=== PATIENT | male | born 1980 | race Caucasian/White ===

== ENCOUNTER 2021-08-05 09:50 | Outpatient (CLI) | payer BC, SELFPAY ==
[2021-08-05 10:27] LABS: Basophils Percent Auto 0.7 % (0.2-1.2); Eosinophils Absolute Auto 0.3 K/mm3 (0-0.3); Eosinophils Percent Auto 5.7 % (0-4.4); Hematocrit 44.7 % (42.0-52.0); Hemoglobin 14.9 g/dL (14.0-18.0); Immature Granulocyte Absolute 0.01 K/mm3 (0.00-0.031); Immature Granulocyte Percent A 0.2 % (0-0.5); Lymphocytes Percent Auto 30.4 % (18.3-44.2); Mean Corpuscular HGB Conc 33.3 g/dl (32-36); Mean Corpuscular Hemoglobin 30.6 pg (26-34); Mean Corpuscular Volume 91.8 fl (80-100); Mean Platelet Volume 9.9 fl (7.4-10.4); Monocytes Absolute Auto 0.3 K/mm3 (0.1-0.6); Monocytes Percent Auto 5.9 % (2.6-8.5); Neutrophils Absolute Auto 3.2 K/mm3 (1.3-6.7); Neutrophils Percent Auto 57.1 % (45.5-73.1); Platelet Count Result 238 k/mm3 (150-375); Red Blood Count 4.87 M/mm3 (4.6-6.20); Red Cell Distribution Width 12.4 % (11.5-14.5); White Blood Count 5.6 K/mm3 (4.5-10.0)
[2021-08-05 12:39] LABS: Anion Gap 10 mmol/L (8-16); Blood Urea Nitrogen 12 mg/dL (9-20); Calcium 9.4 mg/dL (8.4-10.2); Carbon Dioxide 27 mmol/L (22-30); Chloride 103 mmol/L (98-107); Estimated Glomerular Filt Rate > 60; Glucose 100 mg/dL (65-110); Sodium 140 mmol/L (137-145)
== END 2021-08-05 09:51 | disposition home or self-care (01) ==
PROVIDERS: PCP Family Medicine; Visit Provider Physician Assistant Medical
DX: G44.82 Headache associated with sexual activity (principal); R03.0 Elevated blood-pressure reading, without diagnosis of hypertension
CPT/HCPCS: 36415; 80048; 84443; 85025

== ENCOUNTER → 2021-08-21 08:53 | Outpatient (CLI) | payer BC, SELFPAY ==
--- NOTE | ~2021-08-21 | MR_ITS ---
EXAMINATION: MR brain/brain stem wo con DATE: 08/21/2021 09:53 INDICATION: Headache associated with sexual activity. TECHNIQUE: Magnetic resonance imaging (MRI) of the brain and brainstem was performed without intraven ous contrast. Sequences included sagittal and axial T1-weighted FSE, axial diffusion-weighted FS EPI, axial T2*-weighted GRE, axial T2-weighted FLAIR Propeller, and axial T2-weighted Propeller. Apparent diffusion coefficient (ADC) maps were created. COMPARISON: None. FINDINGS: There is no intracranial hemorrhage, acute infarction, or abnormal intracranial mass lesion . The ventricles are normal in size. There is mild mucosal thickening in the paranasal sinuses. The o rbits are normal. The mastoid air cells are normal. IMPRESSION: 1. Normal brain. Reviewed, dictated and finalized at location A. IMPRESSION: 1. Normal brain.
== END ==
PROVIDERS: PCP Family Medicine; Visit Provider Physician Assistant Medical
DX: G44.82 Headache associated with sexual activity (principal)
CPT/HCPCS: 70551

== ENCOUNTER 2022-01-01 09:54 | Outpatient (CLI) | payer BC, SELFPAY ==
--- NOTE | 2022-01-01 10:14 | EST_ITS ---
Patient Info Name: Terrence Hicks Age: 41 years : 1980 Gender: Male Ht: 74 in Wt: 240 lbs BSA: 2.41 m2 HR: 65 bpm BP: 128 / 63 mmHg Heart Rhythm: Sinus Rhythm Exam Date: 01/01/2022 10:28 AM Exam Location: [facility] Stress Patient Status: Outpatient Admit Date: 01/01/2022 Staff Ordering Physician: [place] Clements Attending Provider: [place] Clements Exercise Technologist: Latanya Goss, MILENA Exercise Physician: Harsha Calhoun DO Exam Type: CA stress test treadmill Study Info Indications R07.89 - Other chest pain A treadmill exercise stress test was performed. Summary 1. 1. Negative [place] exercise stress test for ischemic ST changes by ECG criteria. 2. 2. Good functional capacity, achieving 12 METs of workload. 3. 3. Appropriate HR response to exercise. 4. 4. Appropriate HR recovery at 1 minute post exercise. 5. 5. Hypertensive response to exercise. 6. 6. No imaging with stress testing. 7. 7. Patient informed of the above results. Protocol: [place] Stress ECG Details Stage: REST Duration (min): 1 min : 6 sec Speed (mph): 0.0 Grade (%): 0 HR (bpm): 66 SBP (mmHg): 128 DBP (mmHg): 63 METS: --- Stage: REST Duration (min): 7 min : 32 sec Speed (mph): 0.0 Grade (%): 0 HR (bpm): 70 SBP (mmHg): 128 DBP (mmHg): 63 METS: --- Stage: STAGE 1 Duration (min): 1 min : 0 sec Speed (mph): 1.7 Grade (%): 10 HR (bpm): 93 SBP (mmHg): 128 DBP (mmHg): 63 METS: --- Stage: STAGE 1 Duration (min): 2 min : 0 sec Speed (mph): 1.7 Grade (%): 10 HR (bpm): 101 SBP (mmHg): 128 DBP (mmHg): 63 METS: --- Stage: STAGE 1 Duration (min): 3 min : 0 sec Speed (mph): 1.7 Grade (%): 10 HR (bpm): 100 SBP (mmHg): 138 DBP (mmHg): 64 METS: --- Stage: STAGE 2 Duration (min): 1 min : 0 sec Speed (mph): 2.5 Grade (%): 12 HR (bpm): 108 SBP (mmHg): 138 DBP (mmHg): 64 METS: --- Stage: STAGE 2 Duration (min): 2 min : 0 sec Speed (mph): 2.5 Grade (%): 12 HR (bpm): 117 SBP (mmHg): 152 DBP (mmHg): 55 METS: --- Stage: STAGE 2 Duration (min): 3 min : 0 sec Speed (mph): 2.5 Grade (%): 12 HR (bpm): 122 SBP (mmHg): 152 DBP (mmHg): 55 METS: --- Stage: STAGE 3 Duration (min): 1 min : 0 sec Speed (mph): 3.4 Grade (%): 14 HR (bpm): 131 SBP (mmHg): 152 DBP (mmHg): 55 METS: --- Stage: STAGE 3 Duration (min): 2 min : 0 sec Speed (mph): 3.4 Grade (%): 14 HR (bpm): 140 SBP (mmHg): 190 DBP (mmHg): 76 METS: --- Stage: STAGE 3 Duration (min): 3 min : 0 sec Speed (mph): 3.4 Grade (%): 14 HR (bpm): 149 SBP (mmHg): 211 DBP (mmHg): 71 METS: --- Stage: STAGE 4 Duration (min): 1 min : 0 sec Speed (mph): 4.2 Grade (%): 16 HR (bpm): 160 SBP (mmHg): 211 DBP (mmHg): 71 METS: -
== END 2022-01-01 09:55 | disposition home or self-care (01) ==
LOC: ANHCARD 09:55
PROVIDERS: PCP Family Medicine; Visit Provider Physician Assistant Medical
DX: R07.89 Other chest pain (principal); I10 Essential (primary) hypertension
CPT/HCPCS: 93017

== ENCOUNTER 2023-03-24 08:43 | Outpatient (CLI) | payer BC, SELFPAY ==
[2023-04-15 14:17] VITALS: BMI 30.8
--- NOTE | 2023-04-15 14:17 | WPDHOMESLEEP ---
Sleep Study - Home Unattended Date of Study: 03/24/23 Ordering Provider: Reji Alvarez APRN Interpreting Provider: Paradise Akers MD Home Sleep Study Type: Watch PAT Height: 1.88 m Weight: 108.862 kg Body Mass Index: 30.8 Neck Circumference (inches): 17 [place]: 15 Reason for Sleep Study Loud snoring, weight gain, excessive daytime sleepiness Sleep History Terrence Hicks is a 42 year-old man with complains of loud snoring, weight gain, excessive daytime sleepiness. He has previously been on testosterone therapy. He has hypertension. He has had some weight loss and with that, his snoring did improve. He has nocturia once a night. He does not have any irritable crawling or aching feelings in his legs at night. He has fatigue during the day especially with driving and after eating meals. He also feels sleepy and fatigued after long phone call. He feels particularly tired in the afternoon and evening. He does not have much desire to be active. He does not awaken from sleep feeling short of breath or awaken with heartburn, belching or coughing. He occasionally snores and occasionally this is loud enough that others complain about it. He does not have trouble sleeping with a cold. He does not gasp for breath at night. He rarely sweats excessively at night. He does not notice his heart pounding or beating irregularly at night. He frequently falls asleep during the day, involuntarily, rarely while driving. He does not have loss of muscle tone with strong emotion. 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 He does not feel paralyzed on waking or falling asleep. He rarely has vivid dreamlike scenes on waking or falling asleep. He does not feel afraid to go to sleep. He does not have nightmares. He occasionally remembers his dreams. He constantly has racing thoughts. He does not feel sad or depressed. He occasionally has anxiety. He rarely has muscular tension. He rarely notices parts of his body jerking. He does not kick at night, does not have crawling or aching feelings in his legs or any kind of leg pain at night. He does not have morning jaw pain or grind his teeth during sleep. He is not bothered by pain during the day nor is he awakened by pain at night. He rarely wakes up feeling stiff in the morning with sore achy muscles and pain in the neck and spine. Normal bedtime is between 8:00 p.m. and 9:00 p.m., falling asleep within 1-2 minutes, half the time never waking at night but the other half of the time he may wake 1-2 times at night. When he wakes during the night, he may change from the bed to the couch and watch television. He will fall asleep within 1-2 hours. He wakes the morning at 6:00 a.m.. He keeps the same schedule on weekends. He does take naps in the afternoon or evening, sometimes sleeps for an hour after dinner. A short nap lasting 10 or 15 minutes is not refreshing. He feels better in the morning compared to other times of day. Habits: Never smoked tobacco. No caffeine, very rare alcohol, no recreational substances. [facility] Past Medical History Medical History (Updated 04/15/23 @ 14:27 by Paradise Akers MD) BMI 30.0-30.9,adult BMI 32.0-32.9,adult Hypertension Plantar fascia rupture Family History Family History Grandparent Family history of heart disease in male family member before age 55 Diabetes mellitus Father No problems noted. Mother No problems noted. Sibling No problems noted. Social History Social History Smoking status: Never smoker Second hand tobacco smoke exposure: No Alcohol intake: current Drinks per week: 3 Substance use: never Substance use type: does not use Living arrangements: with family Additional living arrangements comments: and kids Occupation/E
== END 2023-03-25 13:34 | disposition home or self-care (01) ==
PROVIDERS: PCP Family Medicine; Visit Provider Nurse Practitioner Family
DX: G47.10 Hypersomnia, unspecified (principal); R06.83 Snoring
CPT/HCPCS: 95800

== ENCOUNTER 2023-05-27 06:35 | Outpatient (CLI) | payer BC, SELFPAY ==
[2023-05-27 07:57] LABS: Free T4 Free Thyroxine 1.05 ng/mL (0.78-2.19)
[2023-05-30 01:35] LABS: Thyroid Peroxidase Antibodies 3 IU/mL (<9)
[2023-05-30 19:00] LABS: Thyrotropin Receptor Antibody <1.00 IU/L (<=2.00)
[2023-06-03 13:57] LABS: Thyroid Stimulating Immunoglob <89 % baseline (<140)
== END 2023-05-27 06:36 | disposition home or self-care (01) ==
PROVIDERS: PCP Family Medicine; Visit Provider Internal Medicine
DX: E29.1 Testicular hypofunction (principal)
CPT/HCPCS: 36415; 82533; 83519; 84439; 84445; 86376; 96372; J0834